=== PATIENT | female | born 1950 | race Caucasian/White ===

== ENCOUNTER 2018-06-25 15:59 | Observation (INO) | payer MEDICARE, OTHER ==
[~2018-06-25] VITALS: Ht 157.5 cm; Wt 63.1 kg
[2018-06-25] MEDS ORDERED: ZOLP-413 PO (16:14)
[2018-06-25] MEDS ORDERED: SODIUM CHLORIDE FLUSH 10ML SYR IVF ONE (17:00)
[2018-06-25 17:07] LABS: BASOPHILS # (AUTO) 0.03 x10^3/uL (0-0.1); BASOPHILS % (AUTO) 0 % (0-1); EOSINOPHILS # (AUTO) 0.15 x10^3/uL (0-0.4); EOSINOPHILS % (AUTO) 2 % (1-7); LYMPHOCYTES # (AUTO) 1.67 x10^3/uL (1-3.4); LYMPHOCYTES % (AUTO) 17 % (22-44); MD NO; MEAN CORPUSCULAR HEMOGLOBIN 32.1 pg (27.0-34.8); MEAN CORPUSCULAR HGB CONC 34.2 g/dL (32.4-35.8); MEAN CORPUSCULAR VOLUME 93.8 fL (80-100); MEAN PLATELET VOLUME 7.9 fL (7.4-10.4); MONOCYTES # (AUTO) 0.98 x10^3/uL (0.2-0.8); MONOCYTES % (AUTO) 10 % (2-9); NEUTROPHILS # (AUTO) 6.91 x10^3/uL (1.8-6.8); NEUTROPHILS % (AUTO) 71 % (42-75); PLATELET COUNT 367 x10^3/uL (130-400); RED BLOOD COUNT 4.38 x10^6/uL (3.82-5.3); RED CELL DISTRIBUTION WIDTH 13.5 % (9.6-15.2)
[2018-06-25 17:17] LABS: ALBUMIN 3.8 g/dL (3.4-5.0); ANION GAP 6 mmol/L (5-15); CALCIUM 9.1 mg/dL (8.5-10.1); CHLORIDE 108 mmol/L (98-107)
[2018-06-25 17:18] LABS: CREATININE 1.03 mg/dL (0.55-1.02)
[2018-06-25 19:00] VITALS: BP 127/84
[2018-06-25] MEDS ORDERED: ZOLPIDEM 5MG TABLET PO PRN (19:00)
[2018-06-25] MEDS ORDERED: NITROGLYCERIN 0.4 MG/SPRAY SL PRN (19:00)
[2018-06-25] MEDS ORDERED: ENALAPRILAT 1.25 MG/ML, 2ML IVPush PRN (19:00)
[2018-06-25] MEDS ORDERED: ENOXAPARIN 40 MG/0.4 ML SQ SCH (19:00)
[2018-06-25] MEDS ORDERED: morphine SULFATE 10 MG/ML, 1ML IVPush PRN (19:00)
[2018-06-25] MEDS ORDERED: ONDANSETRON ODT 4 MG PO PRN (19:00)
[2018-06-25] MEDS ORDERED: NITROGLYCERIN 0.4 MG BOTTLE (25 TABS) SL PRN (19:00)
[2018-06-25 19:17] LABS: TROPONIN I < 0.015 ng/mL (0.000-0.045)
[2018-06-26 01:14] LABS: TROPONIN I < 0.015 ng/mL (0.000-0.045)
[2018-06-26 01:35] VITALS: BP 125/77
[2018-06-26 07:58] VITALS: BP 119/76
[2018-06-26] MEDS ORDERED: REGADENOSON 0.4 MG/5 ML SYRINGE ONE (08:05)
[2018-06-26 14:24] VITALS: BP 102/60
[2018-06-26] MEDS ORDERED: NITR0.4T SL (15:24)
[2018-06-26] MEDS ORDERED: ISOS30TA8 PO (15:24)
[2018-06-26] MEDS ORDERED: ONDA4TAB13 PO (15:24)
[2018-06-26] MEDS ORDERED: ATOR10TA9 PO (15:24)
[2018-06-26] MEDS ORDERED: ATORVASTATIN 10 MG TABLET PO SCH (21:00)
[2018-06-27] MEDS ORDERED: ISOSORBIDE MONONITRATE ER 30 MG TABLET PO SCH (09:00)
== END 2018-06-26 16:31 | disposition home or self-care (01) ==
LOC: ED 17:46 → INTOOBSV 17:47 → OBSVTOIN 17:47 → EDIP 17:47 → ED 18:02 → 5SO 20:30 → UNDODISIN 06-26 16:31
PROVIDERS: ADMIT Internal Medicine; ATTEND Internal Medicine
DX: I20.9 Angina pectoris, unspecified (principal); E11.9 Type 2 diabetes mellitus without complications; E78.5 Hyperlipidemia, unspecified; I10 Essential (primary) hypertension; Z82.49 Family history of ischemic heart disease and other diseases of the circulatory system; Z87.891 Personal history of nicotine dependence; G47.00 Insomnia, unspecified
CPT/HCPCS: 36415; 71045; 78452; 80048; 82040; 84484; 85025; 85379; 93005; 93017; 96372; 99285; A9502; C9898; G0378; J1650; J2785